=== PATIENT | female | born 2000 | race Two or more races ===

== ENCOUNTER 2023-10-06 14:02 | Emergency (ER) | payer MEDICAID ==
[2023-10-06 14:38] LABS: BASOPHILS PERCENT AUTO 0.3 % (0.0-1.0); HEMATOCRIT 46.6 % (37.0-47.0); HEMOGLOBIN 15.1 gm/dl (12.0-16.0); IMMATURE GRAN ABSOLUTE AUTO 0.03 K/mm3 (0.00-0.05); IMMATURE GRAN PERCENT AUTO 0.3 % (0.0-0.4); LYMPHOCYTES ABSOLUTE AUTO 1.2 K/mm3 (1.0-4.8); LYMPHOCYTES PERCENT AUTO 11.1 % (24.0-44.0); MEAN CORPUSCULAR HEMOGLOBIN 30.5 pg (28.0-32.0); MEAN CORPUSCULAR HGB CONC 32.4 g/dl (32.0-36.0); MEAN CORPUSCULAR VOLUME 94.1 fl (83.0-99.0); MEAN PLATELET VOLUME 10.1 fl (9.4-12.3); MONOCYTES ABSOLUTE AUTO 0.3 K/mm3 (0.0-0.8); MONOCYTES PERCENT AUTO 2.8 % (0.0-8.0); NEUTROPHILS ABSOLUTE AUTO 8.9 K/mm3 (1.8-7.7); NEUTROPHILS PERCENT AUTO 85.5 % (41.0-71.0); PLATELET COUNT,PLT 347 K/mm3 (150-400); RED BLOOD CELL COUNT 4.95 M/mm3 (4.10-5.30); WHITE BLOOD CELL COUNT,WBC 10.41 K/mm3 (3.9-11.3)
[2023-10-06] MEDS: Ondansetron 4 MG/2 ML SDV IVPUSH ONE (14:40)
[2023-10-06] MEDS: Sodium Chloride 0.9% 1,000 ML IV ONE ×2 (14:40→17:26)
[2023-10-06] MEDS: Sodium Chloride 0.9% 10 ML Syringe FLUSH PRN (14:41)
[2023-10-06 15:15] LABS: A/G RATIO 1.4 (1-2); ALBUMIN 5.1 g/dl (3.4-5.0); ANION GAP 29.2 (5-15); BILIRUBIN TOTAL 0.4 mg/dL (0.2-1.0); BUN/CREATININE RATIO 15.6 (14-18); C-REACTIVE PROTEIN 0.16 mg/dL (<0.30); CALCIUM 9.6 mg/dL (8.5-10.1); CREATININE 0.9 mg/dL (0.55-1.02); EST CRCL DRUG DOSING (CG) 75.58 mL/min; MAGNESIUM 2.2 mg/dL (1.8-2.4); POTASSIUM,K 4.2 mEq/L (3.5-5.1); PROTEIN TOTAL,TP 8.8 g/dl (6.4-8.2)
[2023-10-06] MEDS: Prochlorperazine 10 MG/2 ML SDV IVPUSH ONE (15:58)
[2023-10-06] MEDS: diphenhydrAMINE 50 MG/ML SDV IVPUSH ONE (15:58)
[2023-10-06] MEDS: Dextrose 5%-0.9% NaCl 1,000 ML IV SCH (15:59)
[2023-10-06] MEDS: diphenhydrAMINE 50 MG/ML SDV ONE (16:01)
[2023-10-06 16:11] LABS: APPEARANCE,URINE CLEAR (Clear); BILIRUBIN,URINE NEGATIVE (Negative); COLOR,URINE YELLOW (Yellow); GLUCOSE,URINE NEGATIVE (Negative); KETONES,URINE 4+ (Negative); LEUKOCYTE ESTERASE,URINE NEGATIVE (Negative); NITRITE,URINE NEGATIVE (Negative); OCCULT BLOOD,URINE 1+ (Negative); PH,URINE 5.5 (5.0-8.0); PROTEIN,URINE TRACE (Negative); UROBILINOGEN,URINE 0.2 (0.2-1.0)
[2023-10-06] MEDS: Iopamidol 612 MG/ML 100 ML Bottle IVPUSH ONE (16:28)
[2023-10-06 16:47] LABS: BACTERIA,URINE FEW /hpf (FEW); EPITHELIAL CELLS,URINE 0-5 /hpf (0-5); MUCUS,URINE NOT SEEN /hpf (FEW); WBC,URINE 0-5 /hpf (0-5)
== END 2023-10-06 19:10 | disposition home or self-care (01) ==
LOC: JD.ED 14:02
DX: E86.0 Dehydration (principal); R10.84 Generalized abdominal pain; F17.210 Nicotine dependence, cigarettes, uncomplicated; Z79.899 Other long term (current) drug therapy
CPT/HCPCS: 36415; 74177; 80053; 81001; 82947; 83690; 83735; 84703; 85025; 86140; 96361; 96374; 96375; 99284; J0780; J1200; J2405; J3490; J7030; J7042; Q9967; 93010